=== PATIENT | male | born 1990 | race Caucasian/White ===

== ENCOUNTER 2019-11-16 22:22 | Emergency (ER) | payer BC ==
[~2019-11-16] VITALS: Ht 170.2 cm; Wt 61.2 kg
--- NOTE | 2019-11-16 22:43 | NUR ---
PATIENT ARRIVED AT THE ER WITH C/O DIFFICULTY URINATING AND URGENCY X2 DAYS.
--- NOTE | 2019-11-16 22:57 | NUR ---
Bladder scan done, pt noted with 467ml of urine. MD made awake
[2019-11-16 23:09] LABS: EOSINOPHILS # (AUTO) 0.1 K/uL (0.0-0.7); EOSINOPHILS % (AUTO) 1.6 % (0.0-7.0); HEMATOCRIT 40.4 % (36.7-47.1); HEMOGLOBIN 13.6 g/dL (12.5-16.3); LYMPHOCYTES # (AUTO) 2.2 K/uL (20.0-40.0); LYMPHOCYTES % (AUTO) 48.6 % (20.5-51.5); MEAN CORPUSCULAR HEMOGLOBIN 30.7 uug (23.8-33.4); MEAN CORPUSCULAR HGB CONC 34 g/dL (32.5-36.3); MEAN CORPUSCULAR VOLUME 91.1 fL (73.0-96.2); MONOCYTES # (AUTO) 0.4 K/uL (2.0-10.0); MONOCYTES % (AUTO) 7.9 % (0.0-11.0); NEUTROPHILS # (AUTO) 1.9 K/uL (1.8-8.9); NEUTROPHILS % (AUTO) 40.9 % (38.5-71.5); PLATELET COUNT (AUTO) 182 K/uL (152-348); RED BLOOD CELL COUNT(AUTO) 4.44 MIL/uL (4.06-5.63); WHITE BLOOD COUNT (AUTO) 4.5 K/uL (3.6-10.2)
[2019-11-16 23:20] LABS: CREATININE 0.8 mg/dL (0.6-1.3)
--- NOTE | 2019-11-16 23:30 | NUR ---
Unable to place faustin catheter due to some resistance. Dr. Beulah forrest.
--- NOTE | 2019-11-16 23:56 | NUR ---
UNABLE TO PLACE COUDE CATHETER, STILL WITH RESISTANCE. TELEPHONE CALL TO UROLOGIST DR. LAMAS, TRANSFER CALL TO ER MD MENDEZ.
--- NOTE | 2019-11-17 00:20 | NUR ---
Dr. Gomez at bedside.
[2019-11-17] MEDS ORDERED: LIDOCAINE HCL 1% 20 ML VIAL IJ ONE (00:45)
[2019-11-17 01:03] VITALS: BP 110/80
--- NOTE | 2019-11-17 01:07 | NUR ---
Patient discharged to home in stable conditon. Written and verbal after care instructions given. Patient verbalizes understanding of instructions. Pt ambulated out of the ER with steady gait. All belongings with pt.
== END 2019-11-17 01:07 | disposition home or self-care (01) ==
LOC: ER 22:22
DX: Z43.6 Encounter for attention to other artificial openings of urinary tract (principal); R33.8 Other retention of urine
CPT/HCPCS: 36415; 80048; 85025; 99283; J3490; A4663

== ENCOUNTER 2021-08-03 03:54 | Emergency (ER) | payer BC ==
[~2021-08-03] VITALS: Ht 170.2 cm; Wt 63.5 kg
--- NOTE | 2021-08-03 04:05 | NUR ---
Dr Campos into eval patient.
[2021-08-03] MEDS ORDERED: DEXAMETHASONE SOD PHOSPHATE 4 MG INJ IM ONE (04:15)
[2021-08-03] MEDS ORDERED: IBUPROFEN 800 MG TABLET PO ONE (04:15)
[2021-08-03] MEDS ORDERED: DEXAMETHASONE SOD PHOSPHATE 10 MG INJ ONE (04:22)
[2021-08-03] MEDS ORDERED: IBUPROFEN 800 MG TABLET ONE (04:22)
[2021-08-03] MEDS ORDERED: IBUP-1955 PO (05:43)
--- NOTE | 2021-08-03 05:48 | NUR ---
Patient discharged to home in stable condition. Written and verbal after care instructions given. Patient verbalizes understanding of instructions. Stressed follow up or return to ER for worsening s/s. Denies any pain/discomfort. Afebrile. No SOB or labored breathing. Steady gait.
[2021-08-03 05:49] VITALS: BP 120/73
== END 2021-08-03 05:50 | disposition home or self-care (01) ==
LOC: ER 03:56
DX: J02.9 Acute pharyngitis, unspecified (principal)
CPT/HCPCS: 86403; 87070; 96372; 99283; J1100; A4663

== ENCOUNTER 2025-02-19 12:05 | Emergency (ER) | payer BC ==
[~2025-02-19] VITALS: Ht 170.2 cm; Wt 63.5 kg
[~2025-02-19 12:05] MED LIST: IBUP-1955 PO
[2025-02-19 12:46] LABS: PLATELET COUNT (AUTO) 164 K/uL (152-348); RED BLOOD CELL COUNT(AUTO) 4.78 MIL/uL (4.06-5.63); RED CELL DISTRIBUTION WIDTH 13.0 % (12.1-16.2); WHITE BLOOD COUNT (AUTO) 4.2 K/uL (3.6-10.2)
[2025-02-19] MEDS: IV NS 1000 ML 1,000 ML IV ONE (12:48)
[2025-02-19] MEDS ORDERED: MORPHINE SULFATE 4 MG/1 ML DISP.SYRIN ONE (12:53)
[2025-02-19] MEDS ORDERED: METOCLOPRAMIDE HCL 10 MG/2 ML VIAL ONE (12:53)
[2025-02-19] MEDS: MORPHINE SULFATE 4 MG/1 ML DISP.SYRIN IV ONE (13:01)
[2025-02-19] MEDS: METOCLOPRAMIDE HCL 10 MG/2 ML VIAL IV ONE (13:01)
[2025-02-19 13:06] LABS: CREATININE 0.7 mg/dL (0.6-1.3); SODIUM SERUM 142.0 mmol/L (136-145); UREA NITROGEN, BLOOD 13.0 mg/dL (7-18)
[2025-02-19] MEDS ORDERED: IV NORMAL SALINE 250 ML IV ONE (13:45)
[2025-02-19] MEDS ORDERED: SWABABLE VALVE TRANSFER SET EA MC ONE (13:45)
[2025-02-19] MEDS ORDERED: IOHEXOL 300MG/ML 100 ML INFUS..BTL ONE (13:45)
[2025-02-19] MEDS ORDERED: DICY20TA11 PO (14:40)
[2025-02-19 15:05] VITALS: BP 132/75; TEMP 97.8; O2SAT 98
== END 2025-02-19 15:05 | disposition home or self-care (01) ==
LOC: ER 12:05
DX: R10.31 Right lower quadrant pain (principal); Z88.7 Allergy status to serum and vaccine
CPT/HCPCS: 99285; 74177; 96374; 96361; 96375; 80048; 85025; 36415; J2765; Q9967; J2270; J7040; A4606; A4663